=== PATIENT | male | born 1990 | race Caucasian/White ===

== ENCOUNTER 2016-08-25 20:08 | Emergency (ER) | payer OTHER ==
[~2016-08-25] VITALS: Ht 177.8 cm; Wt 81.6 kg
[~2016-08-25 20:08] MED LIST: AMBIEN 10MG10 MG PO; ATIVAN0.5 MG PO; ATIVAN1 MG PO; ATIVAN2 MG PO; B-1100 MG PO; CHLORDIAZEPOXID25 M3 PO; CLONIDINE HCL0.1 MG PO; CLONIDINE0.1 MG PO; FOLIC ACID 1 MG PO; GABAPENTIN300 MG PO; IMODIUM 2 MG. CA2 MG PO; LIORESAL 10MG T10 MG PO; MOTRIN 600 MG600 MG PO; MOTRIN800 MG PO; MULTIVITAMIN1 TAB PO; MULTIVITAMINS1 EAC8 PO; NEURONTIN300 M1 PO; OXYCODONE HCL30 MG PO; VALIUM 10 MG. T10 MG PO; VITAMIN B1100 MG PO; ZOFRAN 4 MG TABL4 MG PO; ZOFRAN ODT4 MG PO
[2016-08-25 20:20] VITALS: BP 114/71
[2016-08-25] MEDS ORDERED: CLONIDINE HCL0.1 MG PO (22:37)
[2016-08-25] MEDS ORDERED: ATIVAN1 M1 PO (22:37)
[2016-08-25] MEDS ORDERED: ZOFRAN ODT4 M1 SL (22:37)
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
== END 2016-08-25 22:58 ==
LOC: ERH 20:08
DX: F10.239 Alcohol dependence with withdrawal, unspecified (principal); F11.20 Opioid dependence, uncomplicated
CPT/HCPCS: J3101

== ENCOUNTER 2016-11-14 12:29 | Emergency (ER) | payer OTHER ==
[~2016-11-14] VITALS: Ht 180.3 cm; Wt 79.4 kg
[~2016-11-14 12:29] MED LIST changes: +ATIVAN1 M1 PO; +ZOFRAN ODT4 M1 SL
[2016-11-14 13:18] VITALS: BP 120/73
[2016-11-14 13:19] LABS: ABSOLUTE BASOPHIL COUNT 0 /CUMM (0.0-0.2); ABSOLUTE EOSINOPHIL COUNT 0.1 /CUMM (0.0-0.7); ABSOLUTE GRANULOCYTE CT 5.3 /CUMM (1.4-6.5); ABSOLUTE LYMPH COUNT 1.6 /CUMM (1.2-3.4); ABSOLUTE MONOCYTE COUNT 0.4 /CUMM (0.10-0.60); BASOPHIL % 0.4 % (0.0-2.0); EOSINOPHIL % 1.2 % (0-5); GRANULOCYTE % 71.6 % (42.2-75.2); HEMATOCRIT 40.8 % (42-52); MEAN CORPUSCULAR HGB 27.3 PG (27.0-31.0); MEAN CORPUSCULAR HGB CONC 33.6 G/DL (33.0-37.0); MEAN CORPUSCULAR VOLUME 81.3 FL (80.0-94.0); MEAN PLATELET VOLUME 7.5 FL (7.4-10.4); PLATELET COUNT 347 /CUMM (130-400); RBC DISTRIBUTION WIDTH 13.3 % (11.5-14.5); RED BLOOD CELL CT 5.03 /CUMM (4.70-6.10); WHITE BLOOD CELL COUNT 7.5 /CUMM (4.8-10.8)
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
[2016-11-14] MEDS ORDERED: CLONIDINE HCL0.1 MG PO (13:50)
[2016-11-14] MEDS ORDERED: ZOFRAN ODT4 M1 SL (13:50)
[2016-11-14] MEDS ORDERED: ATIVAN1 M1 PO (13:50)
== END 2016-11-14 14:02 ==
LOC: ERH 12:29
PROVIDERS: Emergency Medicine
DX: F11.10 Opioid abuse, uncomplicated (principal); F10.10 Alcohol abuse, uncomplicated
CPT/HCPCS: 80307; G0480